=== PATIENT | female | born 1960 | race Asian ===

== ENCOUNTER 2016-05-09 05:05 | Inpatient (IN) | payer OTHER ==
[~2016-05-09] VITALS: Ht 167.6 cm; Wt 67.0 kg
[2016-05-09 05:42] LABS: BASO % 0.2 % (0.0-2.0); EOS % 0.1 % (0-4.0); GRAN # 11.7 (1.4-6.5); GRAN % 84.1 % (42.2-75.2); HEMATOCRIT 44.2 % (37.0-47.0); HEMOGLOBIN 14.8 g/dl (12.5-16.0); LYMPH # 1.9 (1.2-3.4); LYMPH % 13.5 % (20.0-51.0); MEAN CELL VOLUME 87 fl (80.0-100.0); MEAN CORPUSCULAR HEMOGLOBIN 29 pg (27.0-31.0); MEAN CORPUSCULAR HGB CONC 34 g/dl (33.0-37.0); MEAN PLATELET VOLUME 10.6 fl (7.4-10.4); MONO # 0.3 (0.1-0.6); MONO % 1.8 % (1.7-9.3); PLATELET COUNT 294 K/mm3 (130-400); RED BLOOD COUNT 5.07 M/mm3 (4.10-5.30); REDCELL DISTRIBUTION WIDTH-CV 13.4 % (11.5-14.5); WHITE BLOOD COUNT 13.9 K/mm3 (4.8-10.8)
[2016-05-09 06:00] LABS: ADJUSTED CALCIUM 10.4 mg/dL (8.4-10.2); ALBUMIN 5.1 gm/dL (3.5-5.0); BILIRUBIN,TOTAL 0.8 mg/dL (0.0-1.0); CALCIUM 11.3 mg/dL (8.4-10.2); CREATININE, serum 0.89 mg/dL (0.52-1.25); POTASSIUM 4.3 mmol/L (3.4-5.0); TOTAL PROTEIN 9.6 gm/dL (6.4-8.2)
[2016-05-09 08:21] VITALS: BP 120/70; PULSE 82; TEMP 97.9
[2016-05-09 13:20] VITALS: BP 126/83; PULSE 76; TEMP 98.4
[2016-05-09 17:06] VITALS: BP 132/83; PULSE 94; TEMP 98.2
[2016-05-09 22:01] VITALS: BP 104/65; PULSE 89; TEMP 98.1
[2016-05-10 01:49] VITALS: BP 106/62; PULSE 82; TEMP 98.4
[2016-05-10 05:12] VITALS: BP 112/63; PULSE 85; TEMP 98
[2016-05-10 06:55] LABS: HEMATOCRIT 44.7 % (37.0-47.0); HEMOGLOBIN 14.2 g/dl (12.5-16.0); MEAN CELL VOLUME 91 fl (80.0-100.0); MEAN CORPUSCULAR HEMOGLOBIN 29 pg (27.0-31.0); MEAN CORPUSCULAR HGB CONC 32 g/dl (33.0-37.0); MEAN PLATELET VOLUME 10.8 fl (7.4-10.4); PLATELET COUNT 288 K/mm3 (130-400); RED BLOOD COUNT 4.93 M/mm3 (4.10-5.30); REDCELL DISTRIBUTION WIDTH-CV 13.9 % (11.5-14.5); WHITE BLOOD COUNT 4.1 K/mm3 (4.8-10.8)
[2016-05-10 07:05] LABS: CALCIUM 9.1 mg/dL (8.4-10.2); CREATININE, serum 0.83 mg/dL (0.52-1.25); POTASSIUM 3.8 mmol/L (3.4-5.0)
[2016-05-10 09:50] VITALS: BP 126/68; PULSE 87; TEMP 98.2
[2016-05-10 13:40] LABS: BAND 40 % (0-10); METAMYELOCYTE 2 % (0-0); MYELOCYTE 1 % (0-0); NEUTROPHILS 26 % (42.0-75.2); TOTAL CELLS COUNTED 100
[2016-05-10 13:42] LABS: PLATELET ESTIMATE NORMAL (NORMAL)
[2016-05-10 13:43] LABS: ADD PATHOLOGY DIFF REVIEW YES
[2016-05-10 13:53] VITALS: BP 126/70; PULSE 99; TEMP 98
[2016-05-10 17:50] VITALS: BP 129/61; PULSE 90; TEMP 98.8
[2016-05-10 21:56] VITALS: BP 125/65; PULSE 88; TEMP 98.6
[2016-05-11] VITALS (13 sets, daily range): BP systolic 110–138; BP diastolic 58–79; PULSE 79–98; TEMP 98.1–98.9
[2016-05-11 08:25] LABS: PATHOLOGY DIFF REVIEW OK
[2016-05-11 09:45] LABS: ADD PATHOLOGY DIFF REVIEW NO
[2016-05-11 09:48] LABS: HEMATOCRIT 42.2 % (37.0-47.0); HEMOGLOBIN 13.6 g/dl (12.5-16.0); MEAN CELL VOLUME 90 fl (80.0-100.0); MEAN CORPUSCULAR HEMOGLOBIN 29 pg (27.0-31.0); MEAN CORPUSCULAR HGB CONC 32 g/dl (33.0-37.0); MEAN PLATELET VOLUME 10.1 fl (7.4-10.4); PLATELET COUNT 261 K/mm3 (130-400); REDCELL DISTRIBUTION WIDTH-CV 13.7 % (11.5-14.5); WHITE BLOOD COUNT 6.5 K/mm3 (4.8-10.8)
[2016-05-11 09:59] LABS: CALCIUM 9.5 mg/dL (8.4-10.2); CREATININE, serum 0.7 mg/dL (0.52-1.25); POTASSIUM 3.9 mmol/L (3.4-5.0)
[2016-05-11 10:22] LABS: BAND 26 % (0-10); NEUTROPHILS 46 % (42.0-75.2); TOTAL CELLS COUNTED 100
[2016-05-12 02:12] VITALS: BP 119/60; PULSE 73; TEMP 97.6
[2016-05-12 05:39] VITALS: BP 121/61; PULSE 85; TEMP 98.4
[2016-05-12 10:30] VITALS: BP 125/63; PULSE 82; TEMP 99
[2016-05-12 14:09] VITALS: BP 115/70; PULSE 80; TEMP 99.5
[2016-05-12] MEDS ORDERED: NORCO 325 MG-51 TAB PO (16:42)
[2016-05-12] MEDS ORDERED: ZOFRAN ODT4 MG PO (16:43)
== END 2016-05-12 17:35 | disposition home or self-care (01) | DRG 337 ==
LOC: COL.ER 05:05 → JCC 07:35 → COL.ER 07:35 → JCC 07:35
PROVIDERS: Emergency Medicine; Surgery
PROC: 0D988ZZ Drainage of Small Intestine, Via Natural or Artificial Opening Endoscopic (ICD-10-PCS; 2016-05-11)
PROC: 0DNB4ZZ Release Ileum, Percutaneous Endoscopic Approach (ICD-10-PCS; principal; 2016-05-11 11:00)
DX: K56.5 Intestinal adhesions [bands] with obstruction (postinfection) (principal)
CPT/HCPCS: J0690; J1100; J1885; J2270; J2405; J2704; J2710; J3010; J7030; J7042; J7120; Q9967

== ENCOUNTER 2016-12-31 07:10 | Emergency (ER) | payer OTHER ==
[~2016-12-31] VITALS: Ht 167.6 cm; Wt 61.4 kg
[~2016-12-31 07:10] MED LIST: NORCO 325 MG-51 TAB PO; ZOFRAN ODT4 MG PO
[2016-12-31 07:13] VITALS: TEMP 98
[2016-12-31 07:54] LABS: BASO % 0.3 % (0.0-2.0); EOS # 0.1 (0.0-0.7); EOS % 1.7 % (0-4.0); GRAN # 3.7 (1.4-6.5); HEMATOCRIT 37.7 % (37.0-47.0); HEMOGLOBIN 12.3 g/dl (12.5-16.0); LYMPH # 1.8 (1.2-3.4); LYMPH % 30.6 % (20.0-51.0); MEAN CELL VOLUME 88 fl (80.0-100.0); MEAN CORPUSCULAR HEMOGLOBIN 29 pg (27.0-31.0); MEAN CORPUSCULAR HGB CONC 33 g/dl (33.0-37.0); MEAN PLATELET VOLUME 9.9 fl (7.4-10.4); MONO # 0.3 (0.1-0.6); MONO % 5.2 % (1.7-9.3); PLATELET COUNT 228 K/mm3 (130-400); RED BLOOD COUNT 4.28 M/mm3 (4.10-5.30); REDCELL DISTRIBUTION WIDTH-CV 13.8 % (11.5-14.5)
[2016-12-31 08:00] LABS: PROTHROMBIN TIME 10.6 SECONDS (9.7-12.8)
[2016-12-31 08:03] LABS: PARTIAL THROMBOPLASTIN TIME 30.7 SECONDS (26.0-37.0)
[2016-12-31 08:04] LABS: ADJUSTED CALCIUM 9.4 mg/dL (8.4-10.2); ALANINE AMINOTRANSFERASE 19 U/L (9-52); ALBUMIN 4.4 gm/dL (3.5-5.0); ALKALINE PHOSPHATASE 78 U/L (50-136); ANION GAP 12 mmol/L (7-16); BILIRUBIN,TOTAL 0.6 mg/dL (0.0-1.0); BLOOD UREA NITROGEN 11 mg/dL (7-17); CALCIUM 9.7 mg/dL (8.4-10.2); CARBON DIOXIDE 22 mmol/L (22-30); CHLORIDE 108 mmol/L (98-107); GLUCOSE 101 mg/dL (74-106); POTASSIUM 4.2 mmol/L (3.4-5.0); SODIUM 142 mmol/L (137-145); TOTAL PROTEIN 7.7 gm/dL (6.4-8.2)
[2016-12-31 08:19] LABS: TROPONIN-I < 0.012 ng/mL (0.000-0.034)
[2016-12-31 09:12] LABS: PH 7 (5-8); SQUAMOUS EPITHELIAL None Seen /hpf; URINE APPEARANCE Clear; URINE BACTERIA None Seen /hpf; URINE BILIRUBIN Negative (NEGATIVE); URINE BLOOD 1+ (NEGATIVE); URINE COLOR Straw; URINE GLUCOSE Negative (NEGATIVE); URINE KETONE Negative (NEGATIVE); URINE RBC 0-2 /hpf; URINE UROBILINOGEN Negative (NEGATIVE); URINE WBC 0-2 /hpf
[2016-12-31] MEDS ORDERED: ANTIVERT 25MG25 MG PO (12:39)
[2016-12-31 12:51] VITALS: BP 122/74; PULSE 69
== END 2016-12-31 12:52 | disposition home or self-care (01) ==
LOC: COL.ER 07:10
PROVIDERS: Emergency Medicine
DX: R42 Dizziness and giddiness (principal); Z90.710 Acquired absence of both cervix and uterus

== ENCOUNTER → 2017-04-24 | Outpatient (CLI) | payer BC ==
[~2017-04-24] MED LIST changes: +ANTIVERT 25MG25 MG PO
== END ==
LOC: COL.LAB 13:44
DX: Z11.1 Encounter for screening for respiratory tuberculosis (principal)

== ENCOUNTER → 2018-01-17 | Outpatient (CLI) | payer BC | LOC: MC.RAD 10:25 | DX: Z12.31 Encounter for screening mammogram for malignant neoplasm of breast (principal); R92.0 Mammographic microcalcification found on diagnostic imaging of breast ==